=== PATIENT | male | born 1975 | race Two or more races ===

== ENCOUNTER → 2024-10-06 | Outpatient (CLI) | payer MEDICAID, SELFPAY ==
--- NOTE | 2024-10-06 08:53 | XR_ITS ---
Examination: Sacrum and coccyx 3 views TECHNIQUE: AP inclined AP, lateral sacrum and coccyx 3 views Exam date and time: October 06, 2024 0926 hours INDICATIONS: Patient fell one year ago with injury to the sacrum, sacral pain FINDINGS: Old appearing fracture fifth sacral segment without significant displacement No acute fracture Adequate alignment sacral segments IMPRESSION: Old appearing fracture fifth sacral segment
== END | disposition home or self-care (01) ==
PROVIDERS: PCP Family Medicine; Referring Provider Family Medicine; Visit Provider Family Medicine
DX: M54.6 Pain in thoracic spine (principal); S39.92XS Unspecified injury of lower back, sequela; W19.XXXS Unspecified fall, sequela
CPT/HCPCS: 72220

== ENCOUNTER → 2025-04-28 | Outpatient (CLI) | payer MEDICAID, SELFPAY ==
--- NOTE | 2025-04-28 15:49 | XR_ITS ---
Examination: Ribs, left, with PA chest, 4 views Technique: Chest PA, RIBS AP, RPO, LPO, 4 views Exam date and time: April 28, 2025 1559 hrs. Indications: Patient fell 3 days ago with injury to the left chest, left rib pain Findings: Normal heart size No pneumothorax. Moderate osteopenia. Acute fracture left sixth rib anteriorly without significant displacement Impression: Acute fracture left sixth rib anteriorly without significant displacement No pneumothorax pulmonary contusion or hemothorax
== END | disposition home or self-care (01) ==
PROVIDERS: PCP Family Medicine; Referring Provider Family Medicine; Visit Provider Family Medicine
DX: S22.32XA Fracture of one rib, left side, initial encounter for closed fracture (principal); W19.XXXA Unspecified fall, initial encounter
CPT/HCPCS: 71101